=== PATIENT | male | born 1960 | race Caucasian/White ===

== ENCOUNTER → 2019-03-06 | Outpatient (CLI) | payer OTHER ==
[~2019-03-06] MED LIST: IOHEXOL 350 MG/ML 100ML INFUS..BTL IV ONE; IOHEXOL-350 50ML VIAL IV ONE
== END | disposition home or self-care (01) ==
LOC: RAH 07:46
PROVIDERS: ATTEND Internal Medicine Cardiovascular Disease
DX: I73.9 Peripheral vascular disease, unspecified (principal); I10 Essential (primary) hypertension; E78.5 Hyperlipidemia, unspecified; I70.90 Unspecified atherosclerosis; K76.0 Fatty (change of) liver, not elsewhere classified; M47.815 Spondylosis without myelopathy or radiculopathy, thoracolumbar region
CPT/HCPCS: 75635; Q9967 ×2

== ENCOUNTER 2019-07-11 05:45 | Day surgery (SDC) | payer OTHER ==
[2019-07-06 10:58] LABS: BASOPHILS % (AUTO) 0.9 % (0.0-5.0); EOSINOPHILS % (AUTO) 3.6 % (0.0-8.0); LYMPHOCYTES % (AUTO) 27.7 % (21.0-51.0); MEAN CORPUSCULAR HEMOGLOBIN 32.4 pg (27.0-33.0); MEAN CORPUSCULAR HGB CONC 33.9 g/dL (32.0-36.0); MEAN CORPUSCULAR VOLUME 95.5 fL (79-99); MONOCYTES % (AUTO) 9.1 % (3.0-13.0); NEUTROPHILS % (AUTO) 58.7 % (40.0-77.0); PLATELET COUNT (AUTO) 177 K/uL (130-400); RED BLOOD CELL COUNT(AUTO) 5.03 MIL/uL (4.50-6.20); RED CELL DISTRIBUTION WIDTH 13.9 % (11.0-15.5); WHITE BLOOD COUNT (AUTO) 6.2 K/uL (4.8-10.8)
[2019-07-06 10:59] LABS: APPEARANCE,URINE Clear (CLEAR); BILIRUBIN,URINE Negative (NEGATIVE); COLOR,URINE Yellow (YELLOW); GLUCOSE, URINE (UA) Negative (NEGATIVE); KETONES,URINE Negative (NEGATIVE); LEUKOCYTE ESTERASE ,URINE Negative (NEGATIVE); NITRATE,URINE Negative (NEGATIVE); OCCULT BLOOD,URINE Negative (NEGATIVE); PH,URINE 5.5 (5.0-8.0); PROTEIN,URINE Negative (NEGATIVE); UROBILINOGEN,URINE 0.2 mg/dL (0.2-1.0)
[2019-07-06 11:15] LABS: CREATININE 1.4 mg/dL (0.5-1.5); POTASSIUM 4.5 mmol/L (3.5-5.1)
[2019-07-06 11:33] LABS: INR 0.94 (0.85-1.15); PROTHROMBIN TIME 9.9 SEC (9.6-11.6)
[2019-07-06 11:35] VITALS: BP 129/69
[2019-07-06 11:51] LABS: PARTIAL THROMBOPLASTIN TIME 30.2 SEC (26.3-35.5)
--- NOTE | 2019-07-10 12:03 | NUR ---
JAILYN NOTIFIED OF ABNORMAL CREAT LEVEL, NO NEW ORDERS PROCEED WITH PROCEDURE.
[~2019-07-11] VITALS: Ht 185.4 cm; Wt 106.7 kg
[2019-07-11] VITALS (24 sets, daily range): BP systolic 100–148; BP diastolic 57–75
[~2019-07-11 05:45] MED LIST changes: +APIX5TAB PO; +ASPI81TA40 PO; -IOHEXOL 350 MG/ML 100ML INFUS..BTL IV ONE; -IOHEXOL-350 50ML VIAL IV ONE; +LOSA50TA64 PO; +PREG150C PO; +TRAM50TA4 PO
[2019-07-11] MEDS ORDERED: SODIUM CHLORIDE 0.9% 1000ML 1,000 ML IV ONE (07:23)
--- NOTE | 2019-07-11 08:52 | NUR ---
TO STREET SWEEPER OPERATOR PT TAKEN TO STREET SWEEPER OPERATOR VIA BED BY EMY PALOMO. PT STABLE.
[2019-07-11] MEDS ORDERED: HEPARIN SODIUM 1000UNIT/ML 10ML VIAL ONE (08:57)
[2019-07-11] MEDS ORDERED: SODIUM BICARB 50MEQ 50ML VIAL ONE (08:57)
[2019-07-11] MEDS ORDERED: IODIXANOL 320 MG/ML 100 ML VIAL ONE (08:57)
[2019-07-11] MEDS ORDERED: LIDOCAINE HCL 2% 20ML ONE (08:57)
[2019-07-11] MEDS ORDERED: NITROGLYCERIN 5 MG/ML 10 ML VIAL IV ONE (08:57)
[2019-07-11] MEDS ORDERED: MIDAZOLAM HCL 1 MG/ML 2ML VIAL ONE ×4 (09:09→10:09)
[2019-07-11] MEDS ORDERED: MEPERIDINE-PF 25 MG/ML SYG ONE ×4 (09:10→10:09)
[2019-07-11] MEDS ORDERED: ONDANSETRON HCL 4 MG/2 ML VIAL IVP SCH (11:00)
[2019-07-11] MEDS ORDERED: ONDANSETRON HCL 4 MG/2 ML VIAL IVP PRN (11:00)
[2019-07-11] MEDS ORDERED: SODIUM CHLORIDE 0.9% 1000ML 1,000 ML IV SCH (11:00)
[2019-07-11] MEDS ORDERED: ACETAMINOPHEN-CODEINE 300/30MG TAB PO PRN ×2 (11:00)
[2019-07-11] MEDS ORDERED: MORPHINE SULFATE 5 MG/ML VIAL IVP SCH ×2 (11:00)
[2019-07-11] MEDS ORDERED: ATROPINE SULFATE 0.1 MG/ML 10 ML SYG IVP ONE (12:38)
--- NOTE | 2019-07-11 14:05 | NUR ---
MANISH PER MER BHARDWAJ, PT MAY RESUME HOME MED MANISH GARCIA.
--- NOTE | 2019-07-11 14:15 | NUR ---
CLARIFICATION PER DR. ALMAGUER, PT MAY BE DISCHARGED HOME TODAY AFTER BEDREST, MAY BE DISCHARGED HOME WITH PRESSURE DRESSING ON AND REMOVE TOMORROW IN THE MORNING. Addendum: 07/11/19 at 1719 by JONH GARBER RN RN AT [address] ALMAGUER THAT HIS RIGHT RADIAL PULSE WAS PALPATED VERY WEAK AND MOST OF THE TIME BY DOPPLER PRIOR AND DURING LINE PULL, CAPILLARY REFILLS BRISK, NAIL BEDS PINK, DENIES NUMBNESS TO RIGHT FINGERS AT THIS TIME. NO FURTHER ORDERS GIVEN.
--- NOTE | 2019-07-11 16:34 | NUR ---
RECEIVED PT. FROM ALANNA PALOMO PT. IS RESTING COMFORTABLE, RIGHT BRACHIAL DRESSING IS DRY AND INTACT, PULSE IS PRESENT.
--- NOTE | 2019-07-11 19:10 | NUR ---
PT V/S STABLE, NO COMPLICATION TO THE RIGHT BRACHIAL SITE, DRESSING IS DRY AND INTACT WITH RADIAL PULSE. D/C INSTRUCTIONS GIVEN TO SPOUSE, WITH F/U APPT. PT LEFT VIA WHEELCHAIR IN PVT CAR.
== END 2019-07-11 19:10 ==
LOC: DAH 05:45
PROVIDERS: ATTEND Internal Medicine Cardiovascular Disease
DX: I70.213 Atherosclerosis of native arteries of extremities with intermittent claudication, bilateral legs (principal); I10 Essential (primary) hypertension; E03.9 Hypothyroidism, unspecified; Z98.890 Other specified postprocedural states; Z79.82 Long term (current) use of aspirin; Z79.899 Other long term (current) drug therapy; Z79.01 Long term (current) use of anticoagulants
CPT/HCPCS: 36415 ×2; 37221; 71045; 75625; 75710; 80048; 81003; 85025; 85610; 85730 ×2; 93005; A4215; A4216; A4221; A4222; A4223 ×3; A4606; C1725; C1769 ×2; C1876; C1887; C1893; C1894 ×2; J1644 ×3; J2175 ×4; J2250 ×4; J2270; J2405; J3490 ×3; J7030; Q9967; 75630; 99156; 99157; J0461

== ENCOUNTER 2019-09-19 05:51 | Day surgery (SDC) | payer OTHER ==
[2019-09-18 08:56] LABS: BASOPHILS % (AUTO) 1.2 % (0.0-5.0); EOSINOPHILS % (AUTO) 3.4 % (0.0-8.0); HEMATOCRIT 47.9 % (42-54); LYMPHOCYTES % (AUTO) 25.1 % (21.0-51.0); MEAN CORPUSCULAR HEMOGLOBIN 32.4 pg (27.0-33.0); MEAN CORPUSCULAR VOLUME 95.1 fL (79-99); MONOCYTES % (AUTO) 9.1 % (3.0-13.0); NEUTROPHILS % (AUTO) 61.2 % (40.0-77.0); PLATELET COUNT (AUTO) 201 K/uL (130-400); RED BLOOD CELL COUNT(AUTO) 5.04 MIL/uL (4.50-6.20); RED CELL DISTRIBUTION WIDTH 12.8 % (11.0-15.5); WHITE BLOOD COUNT (AUTO) 5.4 K/uL (4.8-10.8)
[2019-09-18 08:57] VITALS: BP 137/72
--- NOTE | 2019-09-18 09:05 | NUR ---
RE: CHOLESTEROL MEDICATION PATIENT STATES THAT HE HAS NOT TAKEN HIS CHOLESTEROL MEDICATION BECAUSE IT WAS TOO EXPENSIVE TO PURCHASE. CALLED [facility] AND INFORMED JAILYN THAT PATIENT HAS NOT TAKEN HIS CHOLESTEROL MEDICATION, NO NEW ORDERS RECEIVED.
[2019-09-18 09:06] LABS: CREATININE 1.4 mg/dL (0.5-1.5); POTASSIUM 4.4 mmol/L (3.5-5.1)
[2019-09-18 09:07] LABS: INR 0.94 (0.85-1.15); PARTIAL THROMBOPLASTIN TIME 26.7 SEC (26.3-35.5); PROTHROMBIN TIME 9.9 SEC (9.6-11.6)
[2019-09-18 09:19] LABS: APPEARANCE,URINE Clear (CLEAR); BILIRUBIN,URINE Negative (NEGATIVE); COLOR,URINE Yellow (YELLOW); GLUCOSE, URINE (UA) Negative (NEGATIVE); KETONES,URINE Negative (NEGATIVE); LEUKOCYTE ESTERASE ,URINE Negative (NEGATIVE); NITRATE,URINE Negative (NEGATIVE); OCCULT BLOOD,URINE Negative (NEGATIVE); PH,URINE 5.5 (5.0-8.0); PROTEIN,URINE Negative (NEGATIVE)
--- NOTE | 2019-09-18 13:06 | NUR ---
labs abnormal crea reported to Morris DEL ANGEL, further orders given and will be carried out.
[2019-09-19] VITALS (10 sets, daily range): BP systolic 100–121; BP diastolic 52–71
[~2019-09-19] VITALS: Ht 188 cm; Wt 103.4 kg
[~2019-09-19 05:51] MED LIST changes: +ACETAMINOPHEN 325 MG TAB PO PRN; -APIX5TAB PO; +CLOP75TA32 PO; -PREG150C PO; +SODIUM CHLORIDE 0.9% 1000ML 1,000 ML IV SCH; +SODIUM CHLORIDE 0.9% 500ML 500 ML IV SCH
[2019-09-19] MEDS ORDERED: SODIUM CHLORIDE 0.9% 1000ML 1,000 ML IV ONE (06:11)
--- NOTE | 2019-09-19 09:05 | NUR ---
Pt to test lab technician. Pt at about 2 hours of pre-op hydration. Report given and care rendered over to STACIA Sahni.
[2019-09-19] MEDS ORDERED: IODIXANOL 320 MG/ML 100 ML VIAL ONE (09:06)
[2019-09-19] MEDS ORDERED: SODIUM BICARB 50MEQ 50ML VIAL ONE (09:06)
[2019-09-19] MEDS ORDERED: NITROGLYCERIN 5 MG/ML 10 ML VIAL IV ONE (09:06)
[2019-09-19] MEDS ORDERED: HEPARIN SODIUM 1000UNIT/ML 10ML VIAL ONE (09:06)
[2019-09-19] MEDS ORDERED: LIDOCAINE HCL 2% 20ML ONE (09:07)
[2019-09-19] MEDS ORDERED: MEPERIDINE-PF 25 MG/ML SYG ONE ×4 (09:07→10:49)
[2019-09-19] MEDS ORDERED: MIDAZOLAM HCL 1 MG/ML 2ML VIAL ONE ×4 (09:07→10:49)
[2019-09-19] MEDS ORDERED: SODIUM CHLORIDE 0.9% 1000ML 1,000 ML IV SCH (11:24)
[2019-09-19] MEDS ORDERED: TRAMADOL HCL 50 MG TABLET ONE (13:15)
--- NOTE | 2019-09-19 16:15 | NUR ---
Pt discharged home, tolerating fluids/solids well, voiding well, ambulating well with stand-by assistance. Dressing to right groin remains soft, non-tender, dressing remains intact. Gauze with small amt of red drainage from earlier in the day. Discussed routine and emergency care of right femoral cath site with pt and spouse. Follow-up appointment given. Pt given Femoral Site Care, Angiogram, Care After and Hand Washing Instructions. Pt and spouse report understanding and deny any further questions. Pt accidentally took signature discharge instruction page home.
== END 2019-09-19 16:15 | disposition home or self-care (01) ==
LOC: DAH 05:51
PROVIDERS: ATTEND Internal Medicine Cardiovascular Disease
DX: I70.212 Atherosclerosis of native arteries of extremities with intermittent claudication, left leg (principal); E03.9 Hypothyroidism, unspecified; I10 Essential (primary) hypertension; F17.210 Nicotine dependence, cigarettes, uncomplicated; F10.21 Alcohol dependence, in remission; Z79.01 Long term (current) use of anticoagulants; Z79.82 Long term (current) use of aspirin; Z79.899 Other long term (current) drug therapy; Z82.49 Family history of ischemic heart disease and other diseases of the circulatory system; Z86.711 Personal history of pulmonary embolism
CPT/HCPCS: 36415 ×2; 37224; 37230; 37232; 71045; 75625; 75710; 80048; 81003; 85025; 85347; 85610; 85730; 93005; 96360; 96361; A4215; A4216; A4221; A4222; A4223 ×3; A4606; A4663; C1725; C1760; C1769 ×5; C1876; C1887; C1893; C1894; C2623; J1644 ×2; J2175 ×4; J2250 ×4; J3490 ×3; J7030; Q9967; 99156; 99157

== ENCOUNTER → 2019-12-08 | Outpatient (CLI) | payer OTHER ==
[~2019-12-08] MED LIST changes: -ACETAMINOPHEN 325 MG TAB PO PRN; -SODIUM CHLORIDE 0.9% 1000ML 1,000 ML IV SCH; -SODIUM CHLORIDE 0.9% 500ML 500 ML IV SCH
== END | disposition home or self-care (01) ==
LOC: SHCH 07:38
PROVIDERS: ATTEND Internal Medicine Cardiovascular Disease
DX: I10 Essential (primary) hypertension (principal)
CPT/HCPCS: 93970

== ENCOUNTER 2020-08-19 18:45 | Emergency (ER) | payer OTHER ==
[2020-08-19 19:12] LABS: BASOPHILS % (AUTO) 0.6 % (0.0-5.0); EOSINOPHILS % (AUTO) 2.5 % (0.0-8.0); HEMATOCRIT 45.3 % (42-54); LYMPHOCYTES % (AUTO) 17.4 % (21.0-51.0); MEAN CORPUSCULAR HEMOGLOBIN 31.6 pg (27.0-33.0); MEAN CORPUSCULAR HGB CONC 33.3 g/dL (32.0-36.0); MEAN CORPUSCULAR VOLUME 94.8 fL (79-99); MONOCYTES % (AUTO) 7.6 % (3.0-13.0); NEUTROPHILS % (AUTO) 71.3 % (40.0-77.0); PLATELET COUNT (AUTO) 177 K/uL (130-400); RED BLOOD CELL COUNT(AUTO) 4.78 MIL/uL (4.50-6.20); RED CELL DISTRIBUTION WIDTH 13.3 % (11.0-15.5); WHITE BLOOD COUNT (AUTO) 8.9 K/uL (4.8-10.8)
[2020-08-19 19:23] LABS: CREATININE 1.6 mg/dL (0.5-1.5)
[2020-08-19 19:28] LABS: ALBUMIN 3.7 g/dL (3.5-5.0); BILIRUBIN,DIRECT 0.2 mg/dL (0.0-0.3); BILIRUBIN,TOTAL 1.3 mg/dL (0.2-1.0); TOTAL PROTEIN, SERUM 7.4 g/dL (6.0-8.3)
[2020-08-19 19:35] LABS: B-TYPE NATRIURETIC PEPTIDE < 5 pg/mL (0-100)
[2020-08-19] MEDS ORDERED: DIAZEPAM 5 MG/ML 2 ML SYG ONE (19:38)
== END 2020-08-19 22:12 | disposition home or self-care (01) ==
LOC: EDH 18:45
DX: M54.6 Pain in thoracic spine (principal); R07.89 Other chest pain; G89.29 Other chronic pain; I10 Essential (primary) hypertension; E07.9 Disorder of thyroid, unspecified; I25.10 Atherosclerotic heart disease of native coronary artery without angina pectoris; Z98.890 Other specified postprocedural states
CPT/HCPCS: 36415; 71045; 80048; 80076; 82550; 83880; 84484; 85025; 85378; 93005; 96374; 99285; J3360

== ENCOUNTER 2021-05-19 15:36 | Emergency (ER) | payer OTHER ==
[~2021-05-19] VITALS: Ht 185.4 cm; Wt 112.5 kg
[2021-05-19] MEDS ORDERED: HYDROCODONE/ACETAMINOPHEN 10/325 MG TAB PO ONE ×3 (16:30→17:30)
[2021-05-19 17:25] LABS: HEMATOCRIT 40.1 % (42-54); MEAN CORPUSCULAR HEMOGLOBIN 31.5 pg (27.0-33.0); MEAN CORPUSCULAR HGB CONC 33.2 g/dL (32.0-36.0); PLATELET COUNT (AUTO) 174 K/uL (130-400); RED BLOOD CELL COUNT(AUTO) 4.22 MIL/uL (4.50-6.20); RED CELL DISTRIBUTION WIDTH 12.7 % (11.0-15.5); WHITE BLOOD COUNT (AUTO) 5.3 K/uL (4.8-10.8)
[2021-05-19 17:35] LABS: POTASSIUM 4.3 mmol/L (3.5-5.1)
[2021-05-19 17:36] LABS: INR 0.94 (0.85-1.15); PROTHROMBIN TIME 10.3 SEC (9.6-11.6)
[2021-05-19 17:37] LABS: PARTIAL THROMBOPLASTIN TIME 26.5 SEC (26.3-35.5)
[2021-05-19 17:39] LABS: ALBUMIN 3.8 g/dL (3.5-5.0)
[2021-05-19 17:48] LABS: BAND NEUTROPHILS % (MANUAL) 1 % (0-2); EOSINOPHILS % (MANUAL) 9 % (1-6); LYMPHOCYTES % (MANUAL) 26 % (22-44); MAN.DIFF COMMENT-IMPRESSION MANUAL DIFFERENTIAL; MONOCYTES % (MANUAL) 3 % (2-9); REACTIVE LYMPHOCYTES 1 % (0-0); SEGMENTED NEUTROPHILS % 60 % (40-70)
[2021-05-19] MEDS ORDERED: NAPR-1180 PO (18:27)
[2021-05-19] MEDS ORDERED: ACET-2247 PO (18:32)
[2021-05-19 18:46] VITALS: BP 148/62
== END 2021-05-19 18:47 | disposition home or self-care (01) ==
LOC: CANPREER → EDH 15:36
DX: M25.562 Pain in left knee (principal); M79.662 Pain in left lower leg; E78.00 Pure hypercholesterolemia, unspecified; I10 Essential (primary) hypertension; Z79.899 Other long term (current) drug therapy; Z79.82 Long term (current) use of aspirin; Z86.718 Personal history of other venous thrombosis and embolism
CPT/HCPCS: 36415; 71045; 73562; 80053; 85025; 85610; 85730; 86140; 93005; 93971

== ENCOUNTER → 2022-07-02 | Outpatient (CLI) | payer OTHER ==
[~2022-07-02] MED LIST changes: +ACET-2247 PO
== END | disposition home or self-care (01) ==
LOC: RAH 13:15
PROVIDERS: ATTEND Internal Medicine Cardiovascular Disease
DX: Z13.6 Encounter for screening for cardiovascular disorders (principal)
CPT/HCPCS: 75571

== ENCOUNTER → 2022-07-09 | Outpatient (CLI) | payer OTHER | END | disposition home or self-care (01) | LOC: RAH 13:39 | PROVIDERS: ATTEND Internal Medicine Cardiovascular Disease | DX: I70.203 Unspecified atherosclerosis of native arteries of extremities, bilateral legs (principal); I10 Essential (primary) hypertension; I45.10 Unspecified right bundle-branch block; E03.9 Hypothyroidism, unspecified; E78.5 Hyperlipidemia, unspecified; Z79.01 Long term (current) use of anticoagulants; Z79.82 Long term (current) use of aspirin; Z79.899 Other long term (current) drug therapy | CPT/HCPCS: 93880; 93925 ==

== ENCOUNTER → 2022-09-02 | Outpatient (CLI) | payer OTHER ==
[~2022-09-02] MED LIST changes: +IOHEXOL 350 MG/ML 100ML INFUS..BTL IV ONE
== END | disposition home or self-care (01) ==
LOC: RAH 08:46
PROVIDERS: ATTEND Internal Medicine Cardiovascular Disease
DX: I70.202 Unspecified atherosclerosis of native arteries of extremities, left leg (principal); M47.815 Spondylosis without myelopathy or radiculopathy, thoracolumbar region; K76.0 Fatty (change of) liver, not elsewhere classified; K59.00 Constipation, unspecified; K57.30 Diverticulosis of large intestine without perforation or abscess without bleeding; K42.9 Umbilical hernia without obstruction or gangrene; M25.462 Effusion, left knee; M25.461 Effusion, right knee
CPT/HCPCS: 74174; Q9967

== ENCOUNTER 2023-08-25 06:02 | Day surgery (SDC) | payer OTHER ==
[2023-08-23 11:48] VITALS: BP 144/75; PULSE 52; RESP 18
[~2023-08-25] VITALS: Ht 188 cm; Wt 121.6 kg
[2023-08-25] VITALS (10 sets, daily range): BP systolic 122–155; BP diastolic 60–76; PULSE 49–69; RESP 14–18
[~2023-08-25 06:02] MED LIST changes: -ACET-2247 PO; +ALLO100T PO; -ASPI81TA40 PO; -CLOP75TA32 PO; +EZET10TA48 PO; +HYDR-4060 PO; -IOHEXOL 350 MG/ML 100ML INFUS..BTL IV ONE; +LEVO150C4 PO; +LOSA100T59 PO; -LOSA50TA64 PO; +PREG150C47 PO; +TAMS-1 PO
[2023-08-25] MEDS ORDERED: PROPOFOL 10 MG/ML 20ML VIAL IV ONE ×2 (08:02)
[2023-08-25] MEDS ORDERED: LIDOCAINE HCL 400MG/20ML VIAL ONE (08:02)
[2023-08-25] MEDS ORDERED: PHENYLEPHRINE HCL 10 MG/ML 1ML VIAL IV ONE (08:56)
== END 2023-08-25 10:30 | disposition home or self-care (01) ==
LOC: ENDO 06:02 → DAH 06:02 → ENDO 10:30
PROVIDERS: ATTEND Internal Medicine
DX: Z12.11 Encounter for screening for malignant neoplasm of colon (principal); D62 Acute posthemorrhagic anemia; K63.5 Polyp of colon; K64.0 First degree hemorrhoids; K64.4 Residual hemorrhoidal skin tags; K29.51 Unspecified chronic gastritis with bleeding; I10 Essential (primary) hypertension; I73.9 Peripheral vascular disease, unspecified; N28.9 Disorder of kidney and ureter, unspecified; Z79.899 Other long term (current) drug therapy
CPT/HCPCS: 43239; 45380; J3490; J2704 ×2; J2371; A4620; A4215; A4223; A7002; A4222; A4221; A4663; A4216; J7030; A4606

== ENCOUNTER → 2024-01-14 | Outpatient (CLI) | payer OTHER ==
[~2024-01-14] MED LIST changes: +TRAM100T40 PO
[2024-01-14] MEDS: REGADENOSON 0.4 MG/5 ML PF SYG IVP ONE (13:59)
== END | disposition home or self-care (01) ==
LOC: SHCH 08:40
PROVIDERS: ATTEND Internal Medicine Cardiovascular Disease
DX: I25.10 Atherosclerotic heart disease of native coronary artery without angina pectoris (principal); R06.09 Other forms of dyspnea
CPT/HCPCS: 78452; 93017; J2785; A9500 ×2; 96374

== ENCOUNTER 2024-01-25 05:52 | Day surgery (SDC) | payer OTHER ==
[2024-01-20 13:30] LABS: BASOPHILS # (AUTO) 0.04 K/uL (0.00-0.20); BASOPHILS % (AUTO) 0.7 % (0.0-5.0); EOSINOPHILS # (AUTO) 0.15 K/uL (0.00-0.70); EOSINOPHILS % (AUTO) 2.8 % (0.0-8.0); HEMATOCRIT 44.9 % (42-54); IMMATURE GRANULOCYTE ABSOLUTE 0.02 K/uL (0-1); LYMPHOCYTES # (AUTO) 1.4 K/uL (1.0-4.8); MEAN CORPUSCULAR HEMOGLOBIN 30.9 pg (27.0-33.0); MEAN CORPUSCULAR HGB CONC 32.5 g/dL (32.0-36.0); MEAN CORPUSCULAR VOLUME 94.9 fL (79-99); MONOCYTES # (AUTO) 0.4 K/uL (0.1-1.0); MONOCYTES % (AUTO) 8.1 % (3.0-13.0); NEUTROPHILS # (AUTO) 3.3 K/uL (1.8-7.7); PLATELET COUNT (AUTO) 174 K/uL (130-400); RED BLOOD CELL COUNT(AUTO) 4.73 MIL/uL (4.50-6.20); RED CELL DISTRIBUTION WIDTH 13.9 % (11.0-15.5); WHITE BLOOD COUNT (AUTO) 5.3 K/uL (4.8-10.8)
[2024-01-20 13:37] LABS: CREATININE 1.5 mg/dL (0.5-1.3); POTASSIUM 4.6 mmol/L (3.5-5.1)
[2024-01-20 13:42] LABS: INR <= 0.93 (0.85-1.15); PROTHROMBIN TIME 10.4 SEC (9.6-11.6)
[2024-01-20 13:44] LABS: PARTIAL THROMBOPLASTIN TIME 31.3 SEC (26.3-35.5)
[2024-01-20 14:11] VITALS: BP 127/67; PULSE 47; RESP 18
[2024-01-25] VITALS (19 sets, daily range): BP systolic 109–162; BP diastolic 60–90; PULSE 58–83; RESP 11–19
[~2024-01-25] VITALS: Ht 188 cm; Wt 122.9 kg
[~2024-01-25 05:52] MED LIST changes: -HYDR-4060 PO; -TRAM50TA4 PO
[2024-01-25] MEDS ORDERED: BUPIVACAINE/PF 0.25% 30ML VIAL IJ ONE (07:14)
[2024-01-25] MEDS ORDERED: EPINEPHRINE PF 1MG (1:1,000) 1 MG/ML AMP ONE (07:14)
[2024-01-25] MEDS ORDERED: FENTANYL CITRATE PF 50 MCG/1 ML 2ML VIAL ONE (08:03)
[2024-01-25] MEDS ORDERED: PROPOFOL 10 MG/ML 20ML VIAL IV ONE (08:03)
[2024-01-25] MEDS ORDERED: LIDOCAINE PF 100MG/5ML (2%) SYRINGE 5ML ONE (08:03)
[2024-01-25] MEDS ORDERED: SUCCINYLCHOLINE CHLORIDE 20 MG/ML 10 ML VIAL ONE (08:03)
[2024-01-25] MEDS ORDERED: ROCURONIUM BROMIDE 10MG/1ML 5ML VL ONE (08:03)
[2024-01-25] MEDS ORDERED: MIDAZOLAM HCL 1 MG/ML 2ML VIAL ONE (08:04)
[2024-01-25] MEDS ORDERED: GLYCOPYRROLATE 0.2 MG/ML 5 ML VIAL ONE (08:17)
[2024-01-25] MEDS ORDERED: ONDANSETRON 4MG INJ ONE (08:20)
[2024-01-25] MEDS: CEFAZOLIN SODIUM 2 GM VIAL ONE (08:21)
[2024-01-25] MEDS: LACTATED RINGERS 1000ML 1,000 ML IV ONE (08:22)
[2024-01-25] MEDS ORDERED: EPHEDRINE SULFATE 50 MG/ML AMPULE ONE (08:30)
[2024-01-25] MEDS: BUPIVACAINE/EPI/PF 0.25% 30ML VIAL IJ ONE (08:39)
[2024-01-25] MEDS ORDERED: GABA-529 PO (09:01)
[2024-01-25] MEDS ORDERED: TRAM50TA4 PO (09:01)
[2024-01-25] MEDS ORDERED: DOCU-116 PO (09:01)
[2024-01-25] MEDS: ONDANSETRON 4MG INJ ONE (10:21)
[2024-01-25] MEDS: MEPERIDINE-PF 25 MG/ML SYG ONE ×2 (10:25→10:26)
[2024-01-25] MEDS: ACETAMINOPHEN 1,000 MG/100 ML VIAL IV ONE (10:26)
[2024-01-25] MEDS: FENTANYL CITRATE PF 50 MCG/1 ML 2ML VIAL ONE (10:28)
== END 2024-01-25 11:20 | disposition home or self-care (01) ==
LOC: DAH 05:52
PROVIDERS: ATTEND Surgery
DX: C44.612 Basal cell carcinoma of skin of right upper limb, including shoulder (principal); I10 Essential (primary) hypertension; E03.9 Hypothyroidism, unspecified; E78.2 Mixed hyperlipidemia; D75.1 Secondary polycythemia; E55.9 Vitamin D deficiency, unspecified; I73.9 Peripheral vascular disease, unspecified; Z79.01 Long term (current) use of anticoagulants; Z79.899 Other long term (current) drug therapy; Z98.890 Other specified postprocedural states; Z95.5 Presence of coronary angioplasty implant and graft; Z86.711 Personal history of pulmonary embolism; Z79.890 Hormone replacement therapy
CPT/HCPCS: 80048; 85025; 85610; 85730; 36415; 11606; 88305; A6260; A4663; J0690 ×2; J7120; J3010 ×2; J0330; J0665; J3490 ×4; J2001; J0171; J2250; J2704; J2405 ×2; J2175 ×2; A4215; A4223; A4222; A4221; A4600

== ENCOUNTER → 2025-07-30 | Outpatient (CLI) | payer MEDICARE ==
[~2025-07-30] MED LIST changes: +DOCU-116 PO; -EZET10TA48 PO; +EZET10TA80 PO; +GABA-529 PO; +IOHEXOL-350 75 ML VIAL IV ONE; -LEVO150C4 PO; +LEVO150C5 PO; -TAMS-1 PO; +TAMS-55 PO; -TRAM100T40 PO; +TRAM100T56 PO; +TRAM50TA4 PO
--- NOTE | 2025-07-31 13:25 | HMCIMG ---
EXAM: CTA Abdomen and Pelvis With Runoff to the Lower Extremities with Intravenous Contrast CLINICAL HISTORY: Patient presents with peripheral vascular disease. TECHNIQUE: Axial CTA images of the abdomen, pelvis, and lower extremities obtained in the arterial phase with intravenous contrast. Coronal, sagittal, and 3-D reformatted images generated and reviewed. CONTRAST: Injected intravenously without incident. COMPARISON: 09/02/2022. FINDINGS: AORTA No acute finding. No abdominal aortic aneurysm. No dissection. Mixed atheromatous plaques without hemodynamically significant stenosis. CELIAC TRUNK No acute finding. No occlusion or significant stenosis. SUPERIOR MESENTERIC ARTERY No acute finding. No occlusion or significant stenosis. INFERIOR MESENTERIC ARTERY No acute finding. No occlusion or significant stenosis. RENAL ARTERIES No acute finding. No occlusion or significant stenosis. Accessory right renal artery noted. RIGHT ILIAC ARTERIES No acute finding. No occlusion or significant stenosis. RIGHT FEMORAL ARTERIES No acute finding. No occlusion or significant stenosis. RIGHT POPLITEAL ARTERY No acute finding. No occlusion or significant stenosis. RIGHT CALF ARTERIES No acute finding. No occlusion or significant stenosis. LEFT ILIAC ARTERIES No acute finding. No occlusion or significant stenosis. Left common iliac artery stent graft patent. LEFT FEMORAL ARTERIES No acute finding. No occlusion or significant stenosis. LEFT POPLITEAL ARTERY No acute finding. No occlusion or significant stenosis. LEFT CALF ARTERIES No acute finding. No occlusion or significant stenosis. LOWER THORAX No basilar airspace consolidation. LIVER Diffuse hepatic steatosis. GALLBLADDER AND BILE DUCTS Unremarkable. No stones or ductal dilatation. PANCREAS Unremarkable. SPLEEN Unremarkable. ADRENALS Unremarkable. KIDNEYS AND URETERS Symmetric enhancement. Mild bilateral perinephric fat stranding and haziness. No hydronephrosis or solid mass. STOMACH AND BOWEL No obstruction or bowel wall thickening. Mild constipation. APPENDIX Within normal limits. PELVIS BLADDER Suboptimally distended with mild increased wall thickening. REPRODUCTIVE ORGANS Prostate mildly enlarged. PERITONEUM No free fluid or free air. LYMPH NODES No lymphadenopathy. BONES No acute osseous abnormality. Bilateral knee arthroplasty implants with extensive metallic streak artifacts. SOFT TISSUES Bilateral small fat-containing inguinal hernias. Small fat-containing umbilical hernia. IMPRESSION: No occlusion or hemodynamically significant stenosis of the abdominal, pelvic, or lower extremity arteries. No abdominal aortic aneurysm or dissection. Mixed atheromatous plaques of the abdominal aorta without significant stenosis. Left common iliac artery patent stent graft. No endoleak. Accessory right renal artery. No acute abdominal or pelvic pathology. RECOMMENDATION: Routine clinical follow-up for peripheral vascular disease. Consider ultrasound or CT follow-up if new urinary symptoms develop. Evaluate hernias clinically if symptomatic. /Burns
== END | disposition home or self-care (01) ==
LOC: RAH 07:46
PROVIDERS: ATTEND Internal Medicine Cardiovascular Disease
DX: K40.20 Bilateral inguinal hernia, without obstruction or gangrene, not specified as recurrent (principal); K42.9 Umbilical hernia without obstruction or gangrene; K76.0 Fatty (change of) liver, not elsewhere classified; N40.0 Benign prostatic hyperplasia without lower urinary tract symptoms; I73.9 Peripheral vascular disease, unspecified; N32.89 Other specified disorders of bladder; K59.00 Constipation, unspecified; Z96.653 Presence of artificial knee joint, bilateral
CPT/HCPCS: 75635; Q9967 ×2